=== PATIENT | male | born 1990 | race Two or more races ===

== ENCOUNTER 2023-12-16 13:31 | Emergency (ER) | payer MEDICARE ==
[~2023-12-16] VITALS: Ht 170.2 cm; Wt 75.0 kg
[2023-12-16 13:42] VITALS: BP 104/67; PULSE 100; RESP 18; TEMP 98.2; O2SAT 97
== END 2023-12-16 14:29 | disposition home or self-care (01) ==
LOC: ER 13:31
DX: L03.116 Cellulitis of left lower limb (principal); F20.9 Schizophrenia, unspecified; Z98.890 Other specified postprocedural states
CPT/HCPCS: 99283